=== PATIENT | female | born 1975 | race Caucasian/White ===

== ENCOUNTER 2016-09-13 12:52 | Emergency (ER) | payer OTHER ==
[~2016-09-13] VITALS: Ht 149.9 cm; Wt 74.8 kg
[2016-09-13 12:52] VITALS: BP 161/89
[2016-09-13] MEDS ORDERED: METF1000 PO (13:00)
[2016-09-13] MEDS ORDERED: SING10TA32 PO (13:16)
[2016-09-13] MEDS ORDERED: GUAISYP5 PO (13:16)
== END 2016-09-13 13:21 | disposition home or self-care (01) ==
LOC: M ED 13:12
DX: J06.9 Acute upper respiratory infection, unspecified (principal); E11.9 Type 2 diabetes mellitus without complications; Z79.84 Long term (current) use of oral hypoglycemic drugs; Z79.899 Other long term (current) drug therapy; Z88.0 Allergy status to penicillin

== ENCOUNTER 2016-11-09 08:54 | Emergency (ER) | payer OTHER ==
[~2016-11-09] VITALS: Ht 149.9 cm; Wt 72.2 kg
[~2016-11-09 08:54] MED LIST: GUAISYP5 PO; METF10004 PO; SING10TA32 PO
[2016-11-09 10:38] VITALS: BP 141/89
[2016-11-09] MEDS ORDERED: IBUP-1022 PO (10:38)
[2016-11-09] MEDS ORDERED: FLON1SPR (10:38)
== END 2016-11-09 10:44 | disposition home or self-care (01) ==
LOC: M ED 08:54
DX: H65.01 Acute serous otitis media, right ear (principal); E11.9 Type 2 diabetes mellitus without complications; Z79.84 Long term (current) use of oral hypoglycemic drugs; Z79.899 Other long term (current) drug therapy; Z88.0 Allergy status to penicillin

== ENCOUNTER → 2016-12-25 | Outpatient (CLI) | payer OTHER ==
[~2016-12-25] MED LIST changes: +FLON1SPR; +IBUP-1022 PO
--- NOTE | 2016-12-25 10:02 | REPMRS ---
Patient History The patient states she had a clinical breast exam in November 2016. Patient is nulliparous. No known family history of cancer. Taking hormonal contraceptives for 12 years. Digital Mammo Screening Bilat: December 25, 2016 - Exam #: [id number] Bilateral CC and MLO view(s) were taken. Technologist: Falguni Pastor, Technologist Prior study comparison: May 30, 2015, bilateral digital mammo screening bilat performed at [facility]. FINDINGS: There are scattered fibroglandular densities. There has been no change in the appearance of the mammogram from the prior studies. There is a mild amount of scattered fibroglandular density which is fairly symmetric. There is no interval development of dominant mass, architectural distortion, or clustered microcalcification suggestive of malignancy. ASSESSMENT: BI-RADS/ACR category 1 mammogram. Negative. Recommendation Routine screening mammogram in 1 year (for women over age 40). This mammogram was interpreted with the aid of an FDA-approved computer-aided dectection system. Electronically Signed By: Leonard Michele MD 12/25/16 0003
== END ==
LOC: M RAD 09:26
PROVIDERS: ATTEND Registered Nurse
DX: Z12.31 Encounter for screening mammogram for malignant neoplasm of breast (principal)

== ENCOUNTER 2017-05-20 14:09 | Emergency (ER) | payer OTHER, SELFPAY ==
[2017-05-20 17:24] LABS: INFLUENZA A AMPLIFICATION NEGATIVE (NEGATIVE); INFLUENZA B AMPLIFICATION NEGATIVE (NEGATIVE)
== END 2017-05-20 18:07 | disposition home or self-care (01) ==
LOC: M ED 14:09
DX: J06.9 Acute upper respiratory infection, unspecified (principal); E11.9 Type 2 diabetes mellitus without complications; Z79.84 Long term (current) use of oral hypoglycemic drugs; Z79.899 Other long term (current) drug therapy; Z88.0 Allergy status to penicillin
CPT/HCPCS: 87502

== ENCOUNTER → 2017-06-17 | Outpatient (REF) | payer OTHER ==
[2017-06-17 12:46] LABS: BASO % 0.4 % (0.0-1.0); EOS # 0.2 10^3/uL (0.0-0.50); EOS % 2.6 % (0.0-3.0); HEMATOCRIT 41.7 % (36.0-47.0); HEMOGLOBIN 14.3 g/dl (12.0-16.0); IMMATURE GRANULOCYTE % 0.3 % (0-3.0); LYMPH # 2.2 10^3/uL (1.5-4.5); LYMPH % 30.4 % (24.0-44.0); MEAN CORPUSCULAR HEMOGLOBIN 28.8 pg (27.0-33.0); MEAN CORPUSCULAR HGB CONC 34.3 g/dl (32.0-36.5); MEAN CORPUSCULAR VOLUME 83.9 fl (80.0-96.0); MONO # 0.5 10^3/uL (0.0-0.8); MONO % 6.7 % (0.0-5.0); NEUTROPHILS # 4.3 10^3/uL (1.8-7.7); NEUTROPHILS % 59.6 % (36.0-66.0); PLATELET COUNT, AUTOMATED 619 10^3/uL (150-450); RED BLOOD COUNT 4.97 10^6/uL (4.00-5.40); WHITE BLOOD COUNT 7.3 10^3/uL (4.0-10.0)
== END ==
LOC: M LAB REF 12:19
DX: R53.83 Other fatigue (principal)

== ENCOUNTER 2017-12-21 11:00 | Emergency (ER) | payer OTHER | END 2017-12-21 11:37 | disposition home or self-care (01) | LOC: M ED 11:00 | DX: H65.01 Acute serous otitis media, right ear (principal); J30.2 Other seasonal allergic rhinitis; R09.82 Postnasal drip; I10 Essential (primary) hypertension; Z79.899 Other long term (current) drug therapy; Z88.0 Allergy status to penicillin | CPT/HCPCS: 99282 ==

== ENCOUNTER 2018-01-25 22:01 | Emergency (ER) | payer OTHER ==
[2018-01-25] MEDS: ONDANSETRON 4MG/2ML VIAL (J2405) IV (23:02)
[2018-01-25] MEDS: MORPHINE 2 MG/ML 1ML SYRINGE (J2270) IV (23:06)
[2018-01-25 23:22] LABS: BASO # 0.1 10^3/uL (0.0-0.2); BASO % 0.6 % (0.0-1.0); EOS # 0.2 10^3/uL (0.0-0.50); EOS % 2.2 % (0.0-3.0); HEMATOCRIT 39.3 % (36.0-47.0); HEMOGLOBIN 13.7 g/dl (12.0-15.5); IMMATURE GRANULOCYTE % 0.4 % (0-3.0); LYMPH # 2.6 10^3/uL (1.5-4.5); LYMPH % 23.6 % (24.0-44.0); MEAN CORPUSCULAR HEMOGLOBIN 29.6 pg (27.0-33.0); MEAN CORPUSCULAR HGB CONC 34.9 g/dl (32.0-36.5); MEAN CORPUSCULAR VOLUME 84.9 fl (80.0-96.0); MONO # 0.5 10^3/uL (0.0-0.8); NEUTROPHILS # 7.4 10^3/uL (1.8-7.7); NEUTROPHILS % 68.2 % (36.0-66.0); PLATELET COUNT, AUTOMATED 389 10^3/uL (150-450); RED BLOOD COUNT 4.63 10^6/uL (4.00-5.40); RED CELL DISTRIBUTION WIDTH 11.9 % (11.5-14.5); WHITE BLOOD COUNT 10.9 10^3/uL (4.0-10.0)
[2018-01-25 23:42] LABS: CONTROL LINE HCG INT CTR LINE PRESENT; HCG, SERUM QUALITATIVE NEGATIVE (NEGATIVE)
[2018-01-25 23:52] LABS: ESTIMATED AVERAGE GLUCOSE 306 MG/DL (60-110); HEMOGLOBIN A1c 12.3 %
[2018-01-26 00:04] LABS: ALBUMIN 3.5 GM/DL (3.2-5.2); ALBUMIN/GLOBULIN RATIO 1.06 (1.00-1.93); ALKALINE PHOSPHATASE 153 U/L (45-117); ALT/SGPT 24 U/L (12-78); ANION GAP 7 MEQ/L (8-16); AST/SGOT 10 U/L (7-37); BILIRUBIN,DIRECT 0.1 MG/DL (0.0-0.2); BILIRUBIN,TOTAL 0.4 MG/DL (0.2-1.0); BLOOD UREA NITROGEN 11 MG/DL (7-18); CALCIUM LEVEL 8.3 MG/DL (8.5-10.1); CARBON DIOXIDE LEVEL 26 MEQ/L (21-32); CHLORIDE LEVEL 103 MEQ/L (98-107); CREATININE FOR GFR 0.63 MG/DL (0.55-1.30); GLOMERULAR FILTRATION RATE > 60.0 (>58); GLUCOSE, FASTING 481 MG/DL (70-100); POTASSIUM SERUM 3.8 MEQ/L (3.5-5.1); SODIUM LEVEL 136 MEQ/L (136-145); TOTAL PROTEIN 6.8 GM/DL (6.4-8.2)
[2018-01-26] MEDS: BACTRIM 160MG/800MG DS TAB PO (00:47)
[2018-01-26] MEDS: metFORMIN (GLUCOPHAGE) 500 MG TAB PO (00:47)
[2018-01-26] MEDS: NORCO 5/325MG TABLET (BULK FOR ED) PO (00:48)
[2018-01-26 01:59] LABS: FREE T4 1.16 NG/DL (0.76-1.46)
== END 2018-01-26 00:52 | disposition home or self-care (01) ==
LOC: M ED 01-26 00:52
DX: E11.9 Type 2 diabetes mellitus without complications (principal); I10 Essential (primary) hypertension; L03.811 Cellulitis of head [any part, except face]; Z88.0 Allergy status to penicillin
CPT/HCPCS: J2405

== ENCOUNTER → 2018-03-10 | Outpatient (REF) | payer OTHER ==
[2018-03-10 13:41] LABS: MALB URINE SIEMENS 55.1 MG/L; MAU/CREAT RATIO 39.9 MCG/MG (0.0-30.0)
== END ==
LOC: M LAB REF 12:12
DX: E11.9 Type 2 diabetes mellitus without complications (principal); I10 Essential (primary) hypertension
CPT/HCPCS: 82043

== ENCOUNTER → 2018-03-10 | Outpatient (REF) | payer OTHER ==
[2018-03-10 13:12] LABS: ALBUMIN 3.6 GM/DL (3.2-5.2); ALBUMIN/GLOBULIN RATIO 1.09 (1.00-1.93); ALKALINE PHOSPHATASE 98 U/L (45-117); ALT/SGPT 28 U/L (12-78); ANION GAP 9 MEQ/L (8-16); AST/SGOT 13 U/L (7-37); BILIRUBIN,TOTAL 0.6 MG/DL (0.2-1.0); BLOOD UREA NITROGEN 11 MG/DL (7-18); CALCIUM LEVEL 8.5 MG/DL (8.5-10.1); CARBON DIOXIDE LEVEL 25 MEQ/L (21-32); CHLORIDE LEVEL 104 MEQ/L (98-107); CHOLESTEROL LEVEL 198 MG/DL (<200); GLOMERULAR FILTRATION RATE > 60.0 (>58); GLUCOSE, FASTING 233 MG/DL (70-100); HDL CHOLESTEROL 44 MG/DL (>40); LDL CHOLESTEROL 133 MG/DL (<100); NON-HDL-C 154 MG/DL; POTASSIUM SERUM 4.2 MEQ/L (3.5-5.1); SODIUM LEVEL 138 MEQ/L (136-145); TOTAL PROTEIN 6.9 GM/DL (6.4-8.2); TRIGLYCERIDES LEVEL 105 MG/DL (<150)
[2018-03-10 13:44] LABS: ESTIMATED AVERAGE GLUCOSE 246 MG/DL (60-110); HEMOGLOBIN A1c 10.2 %
== END ==
LOC: M LAB REF 12:08
DX: E11.9 Type 2 diabetes mellitus without complications (principal); I10 Essential (primary) hypertension
CPT/HCPCS: 84443

== ENCOUNTER 2018-04-21 19:26 | Emergency (ER) | payer OTHER ==
[~2018-04-21] VITALS: Ht 149.9 cm; Wt 76.9 kg
[~2018-04-21 19:26] MED LIST changes: +FLON1SPR NARES; +LISI10TA4; +METF500T13 PO; +NORC1TAB4 PO; +TESS100C PO; +ZYRT10CA PO
[2018-04-21 20:13] LABS: HEMATOCRIT 42.8 % (36.0-47.0); HEMOGLOBIN 14.9 g/dl (12.0-15.5); MEAN CORPUSCULAR HEMOGLOBIN 29.7 pg (27.0-33.0); MEAN CORPUSCULAR HGB CONC 34.8 g/dl (32.0-36.5); MEAN CORPUSCULAR VOLUME 85.3 fl (80.0-96.0); PLATELET COUNT, AUTOMATED 493 10^3/uL (150-450); RED BLOOD COUNT 5.02 10^6/uL (4.00-5.40); WHITE BLOOD COUNT 10.5 10^3/uL (4.0-10.0)
[2018-04-21 20:43] LABS: HEMOGLOBIN A1c 10.6 %
[2018-04-21 20:48] LABS: ALBUMIN 3.9 GM/DL (3.2-5.2); ALT/SGPT 23 U/L (12-78); BILIRUBIN,DIRECT < 0.1 MG/DL (0.0-0.2); BILIRUBIN,TOTAL 0.3 MG/DL (0.2-1.0); BLOOD UREA NITROGEN 16 MG/DL (7-18); CALCIUM LEVEL 9.5 MG/DL (8.5-10.1); CARBON DIOXIDE LEVEL 26 MEQ/L (21-32); CHLORIDE LEVEL 97 MEQ/L (98-107); CREATININE FOR GFR 0.68 MG/DL (0.55-1.30); GLOMERULAR FILTRATION RATE > 60.0 (>58); GLUCOSE, FASTING 326 MG/DL (70-100); INFLUENZA A AMPLIFICATION NEGATIVE (NEGATIVE); INFLUENZA B AMPLIFICATION NEGATIVE (NEGATIVE); SODIUM LEVEL 133 MEQ/L (136-145); TOTAL PROTEIN 7.7 GM/DL (6.4-8.2)
[2018-04-21 21:08] VITALS: BP 138/83
[2018-04-21] MEDS ORDERED: GLYB125TA PO (21:17)
== END 2018-04-21 21:26 | disposition home or self-care (01) ==
LOC: M ED 19:26
DX: E11.65 Type 2 diabetes mellitus with hyperglycemia (principal); J02.9 Acute pharyngitis, unspecified; I10 Essential (primary) hypertension; Z88.0 Allergy status to penicillin; Z79.899 Other long term (current) drug therapy; Z79.84 Long term (current) use of oral hypoglycemic drugs

== ENCOUNTER → 2018-06-30 | Outpatient (REF) | payer OTHER ==
[~2018-06-30] MED LIST changes: +GLYB125TA PO
[2018-06-30 14:23] LABS: ALBUMIN 3.5 GM/DL (3.2-5.2); ALT/SGPT 18 U/L (12-78); BILIRUBIN,TOTAL 0.5 MG/DL (0.2-1.0); BLOOD UREA NITROGEN 14 MG/DL (7-18); CALCIUM LEVEL 8.6 MG/DL (8.5-10.1); CARBON DIOXIDE LEVEL 25 MEQ/L (21-32); CHLORIDE LEVEL 102 MEQ/L (98-107); CHOLESTEROL LEVEL 163 MG/DL (<200); CHOLESTEROL RISK RATIO 4.075 (<5); CREATININE FOR GFR 0.61 MG/DL (0.55-1.30); GLOMERULAR FILTRATION RATE > 60.0 (>58); GLUCOSE, FASTING 266 MG/DL (70-100); HDL CHOLESTEROL 40 MG/DL (>40); LDL CHOLESTEROL 103 MG/DL (<100); NON-HDL-C 123 MG/DL; POTASSIUM SERUM 4.3 MEQ/L (3.5-5.1); SODIUM LEVEL 136 MEQ/L (136-145); TOTAL PROTEIN 6.5 GM/DL (6.4-8.2); TRIGLYCERIDES LEVEL 102 MG/DL (<150)
[2018-06-30 15:17] LABS: HEMOGLOBIN A1c 9.2 %
== END ==
LOC: M LAB REF 12:51
PROVIDERS: ATTEND Family Medicine Addiction Medicine
DX: E11.9 Type 2 diabetes mellitus without complications (principal)

== ENCOUNTER → 2018-10-12 | Outpatient (REF) | payer OTHER ==
[~2018-10-12] MED LIST changes: +3 DA2CRE PV; +DIFL150T PO; -NORC1TAB4 PO; +NORC1TAB7 PO
[2018-10-12 14:56] LABS: CHLAMYDIA DNA AMPLIFICATION NEGATIVE (NEGATIVE); GC DNA AMPLIFICATION NEGATIVE (NEGATIVE)
[2018-10-19 00:08] LABS: HPV HYBRID CAPTURE II Negative (Negative)
== END ==
LOC: M LAB REF 12:54
PROVIDERS: ATTEND Nurse Practitioner Family
DX: Z13.9 Encounter for screening, unspecified (principal)
CPT/HCPCS: 87491; 87591; 87624; G0123

== ENCOUNTER → 2018-10-12 | Outpatient (REF) | payer OTHER ==
[2018-10-12 14:47] LABS: ALBUMIN 3.5 GM/DL (3.2-5.2); ALT/SGPT 27 U/L (12-78); BILIRUBIN,TOTAL 0.4 MG/DL (0.2-1.0); BLOOD UREA NITROGEN 12 MG/DL (7-18); CARBON DIOXIDE LEVEL 27 MEQ/L (21-32); CHLORIDE LEVEL 102 MEQ/L (98-107); CHOLESTEROL LEVEL 162 MG/DL (<200); GLOMERULAR FILTRATION RATE > 60.0 (>58); GLUCOSE, FASTING 276 MG/DL (70-100); HDL CHOLESTEROL 45 MG/DL (>40); LDL CHOLESTEROL 96 MG/DL (<100); NON-HDL-C 117 MG/DL; POTASSIUM SERUM 4.2 MEQ/L (3.5-5.1); SODIUM LEVEL 136 MEQ/L (136-145); TOTAL PROTEIN 6.8 GM/DL (6.4-8.2); TRIGLYCERIDES LEVEL 104 MG/DL (<150)
[2018-10-12 15:11] LABS: HEMOGLOBIN A1c 10.7 %
== END ==
LOC: M LAB REF 12:52
PROVIDERS: ATTEND Family Medicine Addiction Medicine
DX: E11.9 Type 2 diabetes mellitus without complications (principal)

== ENCOUNTER 2018-10-14 21:28 | Emergency (ER) | payer OTHER ==
[~2018-10-14] VITALS: Ht 152.4 cm; Wt 81.9 kg
[~2018-10-14 21:28] MED LIST changes: -3 DA2CRE PV; -DIFL150T PO
[2018-10-15] MEDS ORDERED: 3 DA2CRE PV (01:23)
[2018-10-15] MEDS ORDERED: DIFL150T PO (01:23)
[2018-10-15 01:27] VITALS: BP 129/66
[2018-10-15] MEDS ORDERED: FLUCONAZOLE 50MG TABLET PO ONE (01:30)
== END 2018-10-15 01:45 | disposition home or self-care (01) ==
LOC: M ED 21:28
DX: B37.3 Candidiasis of vulva and vagina (principal); E11.9 Type 2 diabetes mellitus without complications; I10 Essential (primary) hypertension; Z88.0 Allergy status to penicillin; Z79.899 Other long term (current) drug therapy

== ENCOUNTER → 2018-11-29 | Outpatient (CLI) | payer OTHER ==
[~2018-11-29] MED LIST changes: +3 DA2CRE PV; +DIFL150T PO
[2018-11-29 08:52] LABS: FREE T4 1.2 NG/DL (0.76-1.46); THYROID STIMULATING HORMONE 2.47 uIU/ML (0.358-3.740)
[2018-11-30 14:24] LABS: THYROID PEROXIDASE ANTIBODY 34.9 U/ML (<60.0)
== END ==
LOC: M LAB 07:53
PROVIDERS: ATTEND Internal Medicine Endocrinology, Diabetes & Metabolism
DX: E11.65 Type 2 diabetes mellitus with hyperglycemia (principal); R94.6 Abnormal results of thyroid function studies

== ENCOUNTER → 2018-12-21 | Outpatient (CLI) | payer OTHER ==
[2018-12-21 07:55] LABS: BLOOD UREA NITROGEN 14 MG/DL (7-18); CALCIUM LEVEL 9.1 MG/DL (8.5-10.1); CARBON DIOXIDE LEVEL 26 MEQ/L (21-32); CHLORIDE LEVEL 105 MEQ/L (98-107); CREATININE FOR GFR 0.59 MG/DL (0.55-1.30); GLOMERULAR FILTRATION RATE > 60.0 (>58); GLUCOSE, FASTING 225 MG/DL (70-100); POTASSIUM SERUM 4.4 MEQ/L (3.5-5.1); SODIUM LEVEL 137 MEQ/L (136-145)
== END ==
LOC: M LAB 06:53
PROVIDERS: ATTEND Nurse Practitioner Family
DX: E11.65 Type 2 diabetes mellitus with hyperglycemia (principal)

== ENCOUNTER → 2019-06-14 | Outpatient (REF) | payer OTHER, SELFPAY ==
[2019-06-14 14:05] LABS: BASO # 0.1 10^3/uL (0.0-0.2); BASO % 0.5 % (0.0-1.0); EOS # 0.2 10^3/uL (0.0-0.5); EOS % 1.9 % (0.0-3.0); HEMATOCRIT 43.3 % (36.0-47.0); LYMPH # 1.5 10^3/uL (1.5-5.0); LYMPH % 13.6 % (24.0-44.0); MEAN CORPUSCULAR HEMOGLOBIN 29.6 pg (27.0-33.0); MEAN CORPUSCULAR HGB CONC 34.6 g/dl (32.0-36.5); MEAN CORPUSCULAR VOLUME 85.4 fl (80.0-96.0); MONO # 0.6 10^3/uL (0.0-0.8); NEUTROPHILS # 8.8 10^3/uL (1.5-8.5); NEUTROPHILS % 78.6 % (36.0-66.0); PLATELET COUNT, AUTOMATED 369 10^3/uL (150-450); RED BLOOD COUNT 5.07 10^6/uL (4.00-5.40); WHITE BLOOD COUNT 11.2 10^3/uL (4.0-10.0)
[2019-06-14 14:20] LABS: ALBUMIN 3.9 GM/DL (3.2-5.2); ALT/SGPT 20 U/L (12-78); BILIRUBIN,TOTAL 0.6 MG/DL (0.2-1.0); BLOOD UREA NITROGEN 11 MG/DL (7-18); CALCIUM LEVEL 8.7 MG/DL (8.5-10.1); CARBON DIOXIDE LEVEL 27 MEQ/L (21-32); CHLORIDE LEVEL 103 MEQ/L (98-107); CHOLESTEROL LEVEL 199 MG/DL (<200); CHOLESTEROL RISK RATIO 4.422 (<5); CREATININE FOR GFR 0.59 MG/DL (0.55-1.30); FREE T4 1.16 NG/DL (0.76-1.46); GLOMERULAR FILTRATION RATE > 60.0 (>58); GLUCOSE, FASTING 281 MG/DL (70-100); HDL CHOLESTEROL 45 MG/DL (>40); LDL CHOLESTEROL 134 MG/DL (<100); NON-HDL-C 154 MG/DL; POTASSIUM SERUM 4.1 MEQ/L (3.5-5.1); SODIUM LEVEL 136 MEQ/L (136-145); TOTAL 25(OH) VITAMIN D 20.9 NG/ML (30.0-100.0); TOTAL PROTEIN 7.3 GM/DL (6.4-8.2); TRIGLYCERIDES LEVEL 100 MG/DL (<150)
[2019-06-14 14:24] LABS: HEMOGLOBIN A1c 11.4 %
== END ==
LOC: M LAB REF 12:59
PROVIDERS: ATTEND Nurse Practitioner Family
DX: Z00.01 Encounter for general adult medical examination with abnormal findings (principal); Z13.9 Encounter for screening, unspecified; E03.9 Hypothyroidism, unspecified; R53.83 Other fatigue; F41.9 Anxiety disorder, unspecified; E11.9 Type 2 diabetes mellitus without complications; I10 Essential (primary) hypertension

== ENCOUNTER 2019-09-10 21:14 | Emergency (ER) | payer OTHER ==
[~2019-09-10] VITALS: Ht 149.9 cm; Wt 80.2 kg
[2019-09-10] MEDS ORDERED: METF10004 PO (21:20)
[2019-09-10] MEDS ORDERED: ACETAMINOPHEN 500 MG TAB PO ONE (21:45)
[2019-09-10] MEDS ORDERED: IBUPROFEN 800 MG TAB PO ONE (21:45)
[2019-09-10] MEDS ORDERED: hydroCHLOROthiazide 12.5 MG CAPSULE PO ONE (22:00)
[2019-09-10] MEDS ORDERED: ALL10TAB29 (22:00)
[2019-09-10] MEDS ORDERED: GLIM2TAB29 (22:00)
[2019-09-10] MEDS ORDERED: LISI10TA15 (22:00)
[2019-09-10] MEDS ORDERED: SERT50TA29 (22:00)
[2019-09-10] MEDS ORDERED: METF500T13 (22:00)
[2019-09-10] MEDS ORDERED: lisinopriL 10 MG TAB PO ONE (22:00)
[2019-09-10] MEDS ORDERED: JENC0.35 (22:00)
[2019-09-10 22:22] LABS: BASO # 0.1 10^3/uL (0.0-0.2); BASO % 0.7 % (0.0-1.0); EOS # 0.2 10^3/uL (0.0-0.5); EOS % 2.9 % (0.0-3.0); HEMATOCRIT 42.6 % (36.0-47.0); HEMOGLOBIN 14.5 g/dl (12.0-15.5); LYMPH # 2.8 10^3/uL (1.5-5.0); LYMPH % 33.2 % (24.0-44.0); MEAN CORPUSCULAR HEMOGLOBIN 29.1 pg (27.0-33.0); MEAN CORPUSCULAR VOLUME 85.5 fl (80.0-96.0); MONO # 0.5 10^3/uL (0.0-0.8); MONO % 6.3 % (0.0-5.0); NEUTROPHILS # 4.8 10^3/uL (1.5-8.5); NEUTROPHILS % 56.8 % (36.0-66.0); PLATELET COUNT, AUTOMATED 437 10^3/uL (150-450); RED BLOOD COUNT 4.98 10^6/uL (4.00-5.40); WHITE BLOOD COUNT 8.4 10^3/uL (4.0-10.0)
[2019-09-10 22:40] LABS: ERYTHROCYTE SEDIMENTATION RATE 4 mm/hr (0-20)
[2019-09-10 22:45] LABS: BLOOD UREA NITROGEN 13 MG/DL (7-18); C REACTIVE PROTEIN QUANTITATIV < 0.30 MG/DL (0.00-0.30); CALCIUM LEVEL 8.2 MG/DL (8.5-10.1); CARBON DIOXIDE LEVEL 26 MEQ/L (21-32); CHLORIDE LEVEL 105 MEQ/L (98-107); GLOMERULAR FILTRATION RATE > 60.0 (>58); GLUCOSE, FASTING 338 MG/DL (70-100); POTASSIUM SERUM 3.8 MEQ/L (3.5-5.1); SODIUM LEVEL 135 MEQ/L (136-145)
[2019-09-10 23:02] VITALS: BP 154/82
[2019-09-10] MEDS ORDERED: KEFL500C17 PO (23:30)
== END 2019-09-10 23:48 | disposition home or self-care (01) ==
LOC: M ED 21:14
DX: L73.9 Follicular disorder, unspecified (principal); E11.65 Type 2 diabetes mellitus with hyperglycemia; R51 Headache; I10 Essential (primary) hypertension; Z88.0 Allergy status to penicillin; Z79.899 Other long term (current) drug therapy; Z79.84 Long term (current) use of oral hypoglycemic drugs

== ENCOUNTER → 2019-10-11 | Outpatient (REF) | payer OTHER ==
[~2019-10-11] MED LIST changes: +ALL10TAB29; +GLIM2TAB29; +JENC0.35; +KEFL500C17 PO; +LISI10TA15; +METF500T13; +SERT50TA29
[2019-10-11 14:04] LABS: BASO # 0.1 10^3/uL (0.0-0.2); BASO % 0.8 % (0.0-1.0); EOS # 0.2 10^3/uL (0.0-0.5); HEMOGLOBIN 13.8 g/dl (12.0-15.5); LYMPH % 31.5 % (24.0-44.0); MEAN CORPUSCULAR HEMOGLOBIN 30.1 pg (27.0-33.0); MEAN CORPUSCULAR HGB CONC 34.5 g/dl (32.0-36.5); MEAN CORPUSCULAR VOLUME 87.1 fl (80.0-96.0); MONO # 0.3 10^3/uL (0.0-0.8); MONO % 5.3 % (0.0-5.0); NEUTROPHILS # 3.8 10^3/uL (1.5-8.5); NEUTROPHILS % 59.1 % (36.0-66.0); PLATELET COUNT, AUTOMATED 429 10^3/uL (150-450); RED BLOOD COUNT 4.59 10^6/uL (4.00-5.40); WHITE BLOOD COUNT 6.4 10^3/uL (4.0-10.0)
[2019-10-11 14:15] LABS: ALBUMIN 3.3 GM/DL (3.2-5.2); ALT/SGPT 21 U/L (12-78); BILIRUBIN,TOTAL 0.5 MG/DL (0.2-1.0); BLOOD UREA NITROGEN 12 MG/DL (7-18); CALCIUM LEVEL 8.6 MG/DL (8.5-10.1); CARBON DIOXIDE LEVEL 28 MEQ/L (21-32); CHLORIDE LEVEL 103 MEQ/L (98-107); CHOLESTEROL LEVEL 199 MG/DL (<200); CHOLESTEROL RISK RATIO 4.975 (<5); CREATININE FOR GFR 0.64 MG/DL (0.55-1.30); GLOMERULAR FILTRATION RATE > 60.0 (>58); GLUCOSE, FASTING 206 MG/DL (70-100); HDL CHOLESTEROL 40 MG/DL (>40); LDL CHOLESTEROL 131 MG/DL (<100); NON-HDL-C 159 MG/DL; POTASSIUM SERUM 4.5 MEQ/L (3.5-5.1); SODIUM LEVEL 135 MEQ/L (136-145); TOTAL PROTEIN 6.3 GM/DL (6.4-8.2); TRIGLYCERIDES LEVEL 140 MG/DL (<150)
== END ==
LOC: M LAB REF 11:31
PROVIDERS: ATTEND Nurse Practitioner Family
DX: E78.5 Hyperlipidemia, unspecified (principal); Z13.9 Encounter for screening, unspecified; R53.83 Other fatigue; F41.9 Anxiety disorder, unspecified; E11.9 Type 2 diabetes mellitus without complications; I10 Essential (primary) hypertension

== ENCOUNTER → 2020-01-24 | Outpatient (REF) | payer OTHER ==
[~2020-01-24] MED LIST changes: -ALL10TAB29; +CETI-24
[2020-01-24 13:28] LABS: BASO # 0.1 10^3/uL (0.0-0.2); BASO % 0.9 % (0.0-1.0); EOS # 0.3 10^3/uL (0.0-0.5); EOS % 4.5 % (0.0-3.0); HEMATOCRIT 44.7 % (36.0-47.0); HEMOGLOBIN 15.2 g/dl (12.0-15.5); LYMPH # 2.7 10^3/uL (1.5-5.0); LYMPH % 39.7 % (24.0-44.0); MEAN CORPUSCULAR HEMOGLOBIN 29.5 pg (27.0-33.0); MEAN CORPUSCULAR VOLUME 86.6 fl (80.0-96.0); MONO # 0.5 10^3/uL (0.0-0.8); MONO % 6.7 % (0.0-5.0); NEUTROPHILS # 3.3 10^3/uL (1.5-8.5); NEUTROPHILS % 48.1 % (36.0-66.0); PLATELET COUNT, AUTOMATED 455 10^3/uL (150-450); RED BLOOD COUNT 5.16 10^6/uL (4.00-5.40); WHITE BLOOD COUNT 6.8 10^3/uL (4.0-10.0)
[2020-01-24 14:09] LABS: AMORPHOUS SEDIMENT SMALL (NEGATIVE); APPEARANCE, URINE TURBID (CLEAR); BACTERIA, URINE AUTO 1+ (NEGATIVE); BILIRUBIN, URINE AUTO NEGATIVE (NEGATIVE); BLOOD, URINE BLOOD 3+ (NEGATIVE); CALCIUM OXALATE CRYSTALS SMALL; COLOR, URINE AMBER (YELLOW); GLUCOSE, URINE (UA) AUTO 3+ mg/dL (NEGATIVE); KETONE, URINE AUTO NEGATIVE (NEGATIVE); LEUKOCYTE ESTERASE, URINE AUTO 2+ (NEGATIVE); MUCUS, URINE SMALL (NEGATIVE); NITRITE, URINE AUTO NEGATIVE (NEGATIVE); PROTEIN, URINE AUTO 1+ mg/dL (NEGATIVE); RBC, URINE AUTO 11 /HPF (0-3); SPECIFIC GRAVITY URINE AUTO 1.037 (1.002-1.035); SQUAMOUS EPITHELIAL CELL UR AU 17 /HPF (0-6); UROBILINOGEN, URINE AUTO 0.2 mg/dL (0.0-2.0); WBC, URINE AUTO 57 /HPF (0-3)
[2020-01-24 14:15] LABS: ALBUMIN 3.5 GM/DL (3.2-5.2); ALT/SGPT 26 U/L (12-78); BILIRUBIN,TOTAL 0.4 MG/DL (0.2-1.0); BLOOD UREA NITROGEN 12 MG/DL (7-18); CALCIUM LEVEL 9.2 MG/DL (8.5-10.1); CARBON DIOXIDE LEVEL 27 MEQ/L (21-32); CHLORIDE LEVEL 102 MEQ/L (98-107); CHOLESTEROL LEVEL 204 MG/DL (<200); CREATININE FOR GFR 0.62 MG/DL (0.55-1.30); GLOMERULAR FILTRATION RATE > 60.0 (>58); GLUCOSE, FASTING 231 MG/DL (70-100); HDL CHOLESTEROL 40 MG/DL (>40); LDL CHOLESTEROL 136 MG/DL (<100); NON-HDL-C 164 MG/DL; POTASSIUM SERUM 4.3 MEQ/L (3.5-5.1); SODIUM LEVEL 135 MEQ/L (136-145); TOTAL 25(OH) VITAMIN D 23.1 NG/ML (30.0-100.0); TOTAL PROTEIN 6.7 GM/DL (6.4-8.2); TRIGLYCERIDES LEVEL 141 MG/DL (<150)
[2020-01-24 15:16] LABS: HEMOGLOBIN A1c 11.3 %
== END ==
LOC: M LAB REF 12:25
PROVIDERS: ATTEND Nurse Practitioner Family
DX: Z00.01 Encounter for general adult medical examination with abnormal findings (principal); R51 Headache; F41.8 Other specified anxiety disorders; E78.5 Hyperlipidemia, unspecified; L20.9 Atopic dermatitis, unspecified; E03.9 Hypothyroidism, unspecified; Z13.9 Encounter for screening, unspecified; E11.9 Type 2 diabetes mellitus without complications; I10 Essential (primary) hypertension; J30.9 Allergic rhinitis, unspecified

== ENCOUNTER 2020-08-06 19:19 | Emergency (ER) | payer OTHER ==
[~2020-08-06] VITALS: Ht 149.9 cm; Wt 76.1 kg
[~2020-08-06 19:19] MED LIST changes: +LISI10TA22; -LISI10TA4
[2020-08-06] MEDS ORDERED: IBUPROFEN 600MG TAB PO ONE (20:25)
[2020-08-06] MEDS ORDERED: LIDOCAINE 4% CREAM 5GM (LMX4) TOP ONE (20:25)
--- NOTE | 2020-08-06 20:48 | REPVR ---
PROCEDURE INFORMATION: Exam: XR Left Wrist Exam date and time: 08/06/2020 7:58 PM Age: 45 years old Clinical indication: Pain; Wrist; Left TECHNIQUE: Imaging protocol: XR Left wrist. Views: 3 or more views. COMPARISON: CR Fingers 10/22/2014 1:33 PM FINDINGS: Bones/joints: Normal. Soft tissues: Normal. IMPRESSION: No acute findings. Electronically signed by: Lalito Hamilton On 08/06/2020 20:48:49 PM
[2020-08-06] MEDS ORDERED: IBUP-1022 PO (20:56)
[2020-08-06] MEDS ORDERED: ANEC4CRE3 TOP (20:56)
[2020-08-06 21:02] VITALS: BP 176/87
== END 2020-08-06 21:11 | disposition home or self-care (01) ==
LOC: M ED 19:19
DX: M25.532 Pain in left wrist (principal); M25.432 Effusion, left wrist; E11.9 Type 2 diabetes mellitus without complications; I10 Essential (primary) hypertension; Z79.84 Long term (current) use of oral hypoglycemic drugs; Z88.0 Allergy status to penicillin; Z88.1 Allergy status to other antibiotic agents

== ENCOUNTER → 2020-09-04 | Outpatient (REF) | payer OTHER ==
[~2020-09-04] MED LIST changes: +ANEC4CRE3 TOP
[2020-09-04 12:51] LABS: BASO # 0.1 10^3/uL (0.0-0.2); BASO % 0.5 % (0.0-1.0); EOS # 0.2 10^3/uL (0.0-0.5); EOS % 2.1 % (0.0-3.0); HEMOGLOBIN 14.2 g/dl (12.0-15.5); LYMPH # 2.1 10^3/uL (1.5-5.0); LYMPH % 20.3 % (24.0-44.0); MEAN CORPUSCULAR HEMOGLOBIN 29.3 pg (27.0-33.0); MEAN CORPUSCULAR HGB CONC 33.8 g/dl (32.0-36.5); MEAN CORPUSCULAR VOLUME 86.8 fl (80.0-96.0); MONO # 0.7 10^3/uL (0.0-0.8); MONO % 6.9 % (2.0-8.0); NEUTROPHILS # 7.1 10^3/uL (1.5-8.5); NEUTROPHILS % 69.7 % (36.0-66.0); PLATELET COUNT, AUTOMATED 412 10^3/uL (150-450); RED BLOOD COUNT 4.84 10^6/uL (4.00-5.40); WHITE BLOOD COUNT 10.1 10^3/uL (4.0-10.0)
[2020-09-04 13:09] LABS: HEMOGLOBIN A1c 11.3 %
[2020-09-04 13:37] LABS: ALBUMIN 3.5 GM/DL (3.2-5.2); ALT/SGPT 20 U/L (12-78); BILIRUBIN,TOTAL 0.6 MG/DL (0.2-1.0); BLOOD UREA NITROGEN 10 MG/DL (7-18); CALCIUM LEVEL 9.1 MG/DL (8.5-10.1); CARBON DIOXIDE LEVEL 26 MEQ/L (21-32); CHLORIDE LEVEL 103 MEQ/L (98-107); CHOLESTEROL LEVEL 174 MG/DL (<200); CHOLESTEROL RISK RATIO 3.551 (<5); CREATININE FOR GFR 0.51 MG/DL (0.55-1.30); FERRITIN 35 NG/ML (8-252); FOLATE 11.2 NG/ML; FREE T4 1.06 NG/DL (0.76-1.46); GLOMERULAR FILTRATION RATE > 60.0 (>58); GLUCOSE, FASTING 248 MG/DL (70-100); HDL CHOLESTEROL 49 MG/DL (>40); IRON (FE) 34 UG/DL (50-170); LDL CHOLESTEROL 110 MG/DL (<100); NON-HDL-C 125 MG/DL; PERCENT SATURATION 12.2 % (13.2-45.0); POTASSIUM SERUM 4.3 MEQ/L (3.5-5.1); SODIUM LEVEL 136 MEQ/L (136-145); TOTAL 25(OH) VITAMIN D 17.9 NG/ML (30.0-100.0); TOTAL IRON BINDING CAPACITY 279 UG/DL (250-450); TOTAL PROTEIN 6.6 GM/DL (6.4-8.2); TRIGLYCERIDES LEVEL 76 MG/DL (<150); VITAMIN B12 LEVEL 974 PG/ML
[2020-09-04 14:13] LABS: HEPATITIS C VIRUS ABY INDEX < 0.0 INDEX (<0.8)
[2020-09-04 14:14] LABS: HIV 1&2 SCREEN CENTAUR NEGATIVE (NEGATIVE)
== END ==
LOC: M LAB REF 12:23
PROVIDERS: ATTEND Nurse Practitioner Family
DX: F41.9 Anxiety disorder, unspecified (principal); E78.5 Hyperlipidemia, unspecified; I10 Essential (primary) hypertension

== ENCOUNTER 2020-09-20 07:30 | Outpatient (RCR) | payer OTHER | END 2020-09-23 | LOC: M PT 07:30 | PROVIDERS: ATTEND Orthopaedic Surgery Sports Medicine | DX: M70.12 Bursitis, left hand (principal) ==

== ENCOUNTER 2020-10-06 21:31 | Emergency (ER) | payer OTHER ==
[~2020-10-06] VITALS: Ht 149.9 cm; Wt 74.8 kg
[2020-10-07 00:45] VITALS: BP 162/78
[2020-10-07] MEDS ORDERED: OLOP0.1D OP (01:54)
== END 2020-10-07 02:05 | disposition home or self-care (01) ==
LOC: M ED 21:31
DX: H11.002 Unspecified pterygium of left eye (principal); E11.9 Type 2 diabetes mellitus without complications; I10 Essential (primary) hypertension; Z88.0 Allergy status to penicillin; Z88.1 Allergy status to other antibiotic agents

== ENCOUNTER → 2020-10-23 | Outpatient (RCR) | payer OTHER ==
[~2020-10-23] MED LIST changes: +OLOP0.1D OP
== END ==
LOC: M PT 10-02 10:17
PROVIDERS: ATTEND Orthopaedic Surgery Sports Medicine
DX: M70.12 Bursitis, left hand (principal)

== ENCOUNTER 2021-04-21 04:18 | Emergency (ER) | payer OTHER ==
[~2021-04-21] VITALS: Ht 149.9 cm; Wt 73.3 kg
[~2021-04-21 04:18] MED LIST changes: -LISI10TA15; +LISI10TA24
[2021-04-21] MEDS ORDERED: TESS100C PO (09:57)
[2021-04-21] MEDS ORDERED: LIDO2SO PO (09:57)
[2021-04-21] MEDS ORDERED: ERYT5OIN25 OS (09:57)
[2021-04-21 10:22] VITALS: BP 139/77
== END 2021-04-21 10:26 | disposition home or self-care (01) ==
LOC: M ED 04:18
DX: J06.9 Acute upper respiratory infection, unspecified (principal); J02.9 Acute pharyngitis, unspecified; H10.32 Unspecified acute conjunctivitis, left eye; E11.9 Type 2 diabetes mellitus without complications; I10 Essential (primary) hypertension; Z88.0 Allergy status to penicillin

== ENCOUNTER 2021-04-24 18:22 | Emergency (ER) | payer OTHER ==
[~2021-04-24] VITALS: Ht 149.9 cm; Wt 72.2 kg
[~2021-04-24 18:22] MED LIST changes: +ERYT5OIN25 OS; +LIDO2SO PO; +LISI10TA15; -LISI10TA24
[2021-04-24 23:22] VITALS: BP 190/92
== END 2021-04-24 23:38 | disposition home or self-care (01) ==
LOC: M ED 18:22
DX: J02.9 Acute pharyngitis, unspecified (principal); E11.9 Type 2 diabetes mellitus without complications; I10 Essential (primary) hypertension; Z88.0 Allergy status to penicillin

== ENCOUNTER 2021-06-04 04:25 | Emergency (ER) | payer OTHER ==
[~2021-06-04] VITALS: Ht 149.9 cm; Wt 70.6 kg
[~2021-06-04 04:25] MED LIST changes: -LISI10TA15; +LISI10TA24
[2021-06-04] MEDS ORDERED: TETRACAINE 0.5% OPHTH SOLN 4ML OU ONE (07:20)
[2021-06-04] MEDS ORDERED: FLUORESCEIN OPHTH 1 MG STRIP OU ONE (07:20)
[2021-06-04] MEDS ORDERED: METF10004 PO (07:35)
[2021-06-04 08:47] VITALS: BP 170/90
== END 2021-06-04 08:49 | disposition home or self-care (01) ==
LOC: M ED 04:25
DX: H53.8 Other visual disturbances (principal); E11.9 Type 2 diabetes mellitus without complications; I10 Essential (primary) hypertension; Z79.4 Long term (current) use of insulin; Z88.0 Allergy status to penicillin; Z88.1 Allergy status to other antibiotic agents

== ENCOUNTER 2022-03-16 14:30 | Emergency (ER) | payer OTHER ==
[~2022-03-16] VITALS: Ht 149.9 cm; Wt 75.0 kg
[~2022-03-16 14:30] MED LIST changes: -OLOP0.1D OP; +OLOP5DRO16 OP
[2022-03-16 15:37] LABS: BASO # 0.1 10^3/uL (0.0-0.2); BASO % 0.4 % (0.0-1.0); EOS # 0.2 10^3/uL (0.0-0.5); EOS % 1.5 % (0.0-3.0); HEMATOCRIT 43.5 % (36.0-47.0); LYMPH # 2.4 10^3/uL (1.5-5.0); LYMPH % 19.2 % (24.0-44.0); MEAN CORPUSCULAR HEMOGLOBIN 29.5 pg (27.0-33.0); MEAN CORPUSCULAR HGB CONC 34.5 g/dl (32.0-36.5); MEAN CORPUSCULAR VOLUME 85.6 fl (80.0-96.0); MONO # 0.8 10^3/uL (0.0-0.8); MONO % 6.7 % (2.0-8.0); NEUTROPHILS % 71.9 % (36.0-66.0); PLATELET COUNT, AUTOMATED 422 10^3/uL (150-450); RED BLOOD COUNT 5.08 10^6/uL (4.00-5.40); WHITE BLOOD COUNT 12.5 10^3/uL (4.0-10.0)
[2022-03-16 16:10] LABS: BLOOD UREA NITROGEN 12 MG/DL (9-23); CARBON DIOXIDE LEVEL 29 MMOL/L (20-31); CHLORIDE LEVEL 100 MMOL/L (98-107); CREATININE FOR GFR 0.54 MG/DL (0.55-1.30); GLOMERULAR FILTRATION RATE > 60.0 (>58); GLUCOSE, FASTING 143 MG/DL (60-100); POTASSIUM SERUM 4.3 MMOL/L (3.5-5.1); SODIUM LEVEL 139 MMOL/L (136-145)
[2022-03-16 16:54] LABS: HCG, SERUM QUALITATIVE NEGATIVE (NEGATIVE)
[2022-03-16] MEDS ORDERED: AUGMENTIN 875 MG TAB PO ONE (17:00)
[2022-03-16 17:05] VITALS: BP 154/82
[2022-03-16] MEDS ORDERED: AMOX875T2 PO (17:14)
== END 2022-03-16 17:21 | disposition home or self-care (01) ==
LOC: M ED 14:30
DX: K02.9 Dental caries, unspecified (principal); L03.211 Cellulitis of face; E11.9 Type 2 diabetes mellitus without complications; I10 Essential (primary) hypertension; Z88.0 Allergy status to penicillin; Z88.1 Allergy status to other antibiotic agents; Z79.84 Long term (current) use of oral hypoglycemic drugs

== ENCOUNTER → 2022-04-29 | Outpatient (REF) | payer OTHER ==
[~2022-04-29] MED LIST changes: +AMOX875T2 PO
== END ==
LOC: M LAB REF 16:32
PROVIDERS: ATTEND Nurse Practitioner Family
DX: R05.9 Cough, unspecified (principal)

== ENCOUNTER 2023-02-13 23:42 | Inpatient (IN) | payer OTHER ==
[~2023-02-13] VITALS: Ht 149.9 cm; Wt 77.5 kg
[~2023-02-13 23:42] MED LIST changes: +LIDO15SO2 PO; -LIDO2SO PO; +MONT-5 PO; -OLOP5DRO16 OP; +OLOP5DRO17 OP; -SING10TA32 PO
[2023-02-14] VITALS (8 sets, daily range): BP systolic 110–196; BP diastolic 55–100; TEMP 96.4–97.1; O2SAT 96–98
[2023-02-14] MEDS ORDERED: LABETALOL 100MG/20ML VIAL IV STA ×2 (00:47→02:00)
[2023-02-14] MEDS ORDERED: ERYTHROMYCIN OPHTH OINT OS ONE (00:50)
[2023-02-14 01:12] LABS: BASO # 0.1 10^3/uL (0.0-0.2); BASO % 0.7 % (0.0-1.0); EOS # 0.3 10^3/uL (0.0-0.5); EOS % 2.9 % (0.0-3.0); HEMOGLOBIN 16.1 g/dl (12.0-15.5); LYMPH # 3.1 10^3/uL (1.5-5.0); LYMPH % 30.8 % (24.0-44.0); MEAN CORPUSCULAR HEMOGLOBIN 29.8 pg (27.0-33.0); MEAN CORPUSCULAR HGB CONC 35.8 g/dl (32.0-36.5); MEAN CORPUSCULAR VOLUME 83.3 fl (80.0-96.0); MONO # 0.6 10^3/uL (0.0-0.8); MONO % 6.3 % (2.0-8.0); NEUTROPHILS # 5.9 10^3/uL (1.5-8.5); PLATELET COUNT, AUTOMATED 430 10^3/uL (150-450)
[2023-02-14 01:45] LABS: RSV AMPLIFICATION NEGATIVE (NEGATIVE)
[2023-02-14] MEDS ORDERED: LISI10TA24 PO (01:47)
[2023-02-14] MEDS ORDERED: MINO100C4 PO (01:47)
[2023-02-14] MEDS ORDERED: ATOR1TAB21 PO (01:47)
[2023-02-14] MEDS ORDERED: SERT50TA29 PO (01:47)
[2023-02-14] MEDS ORDERED: TRUL10IN SC (01:47)
[2023-02-14] MEDS ORDERED: GLIM2TAB29 PO ×2 (01:47→16:08)
[2023-02-14] MEDS ORDERED: ERYT2GEL TOP (01:47)
[2023-02-14] MEDS ORDERED: CETI-24 PO (01:47)
[2023-02-14] MEDS ORDERED: METO1TAB87 PO (01:47)
[2023-02-14] MEDS ORDERED: JARD1TAB PO (01:47)
[2023-02-14] MEDS ORDERED: VITA200032 PO (01:47)
[2023-02-14] MEDS ORDERED: FERR325T19 PO (01:47)
[2023-02-14] MEDS ORDERED: SUMA50TA2 PO (01:47)
[2023-02-14] MEDS ORDERED: NORA0.35 PO (01:48)
[2023-02-14] MEDS ORDERED: ACET-683 PO (01:51)
[2023-02-14] MEDS ORDERED: HOME MED LIST COMPLETE! XX SCH (01:55)
[2023-02-14] MEDS ORDERED: HumuLIN R (REGULAR) INSULIN (NovoLIN R) **100U/ML** PER UNIT IV ONE (02:00)
[2023-02-14] MEDS ORDERED: hydrALAZINE 20MG/ML 1ML VIAL IV PRN (04:40)
[2023-02-14] MEDS ORDERED: DEXTROSE 50% 50ML SYRINGE IV PRN (04:40)
[2023-02-14] MEDS ORDERED: GLUCAGON INJ 1MG VIAL SC PRN (04:40)
[2023-02-14] MEDS ORDERED: ACETAMINOPHEN TAB 650MG DOSE (2X325MG) PO PRN (04:40)
[2023-02-14] MEDS ORDERED: GLUCOSE 4GM CHEW TABLET PO PRN (04:40)
[2023-02-14] MEDS ORDERED: INSULIN LISPRO (NovoLOG) PER UNIT SC ONE (06:00)
[2023-02-14] MEDS ORDERED: SUMAtriptan SUCCINATE 25 MG TAB PO PRN (07:00)
[2023-02-14] MEDS ORDERED: metFORMIN (GLUCOPHAGE) 1000MG TABLET PO SCH (08:00)
[2023-02-14] MEDS ORDERED: LEVEMIR (INSULIN DETEMIR) 1 UNITS/0.01ML SC SCH (09:00)
[2023-02-14] MEDS ORDERED: FERROUS SULFATE 325MG TAB PO SCH (09:00)
[2023-02-14] MEDS ORDERED: METOPROLOL TART 25 MG TABLET PO SCH (09:00)
[2023-02-14] MEDS ORDERED: METOPROLOL SUCC (TopROL XL) 50MG **XL** TAB PO SCH (09:00)
[2023-02-14] MEDS ORDERED: ENTER DRUG NAME HERE (PATIENT'S OWN MED) PO SCH (09:00)
[2023-02-14] MEDS ORDERED: hydroCHLOROthiazide 12.5 MG CAPSULE PO SCH (09:00)
[2023-02-14] MEDS ORDERED: CETIRIZINE (ZyrTEC) 10 MG TAB PO SCH (09:00)
[2023-02-14] MEDS ORDERED: ENOXAPARIN 40MG/0.4ML SYRINGE (J1650 PER 10MG) SC SCH (09:00)
[2023-02-14] MEDS ORDERED: ERYTHROMYCIN OPHTH OINT OS SCH (09:00)
[2023-02-14] MEDS ORDERED: SERTRALINE HCL 50 MG TAB PO SCH (09:00)
[2023-02-14] MEDS ORDERED: GLIMEPIRIDE 2 MG TAB PO SCH (09:00)
[2023-02-14] MEDS ORDERED: ATORVASTATIN 20 MG TAB PO SCH (09:00)
[2023-02-14] MEDS: ERYTHROMYCIN OPHTH OINT OU SCH ×2 (09:33→15:53)
[2023-02-14] MEDS: INSULIN LISPRO (NovoLOG) PER UNIT SC SCH ×2 (09:35→12:20)
[2023-02-14] MEDS ORDERED: GLUC1TES2 XX (10:28)
[2023-02-14] MEDS ORDERED: ERYT5OIN25 OU (10:28)
[2023-02-14] MEDS ORDERED: LANC30MI XX (10:28)
[2023-02-14] MEDS ORDERED: PEN-308 SC (10:28)
[2023-02-14] MEDS ORDERED: ALCOPAD25 TOP (10:28)
[2023-02-14] MEDS ORDERED: INSU100I48 SQ (10:28)
[2023-02-14] MEDS ORDERED: BLOOKIT21 XX (10:28)
[2023-02-14] MEDS ORDERED: LEVEMIR (INSULIN DETEMIR) 1 UNITS/0.01ML SC ONE (11:20)
[2023-02-14] MEDS: MAG SULF 1GM/100ML (MAG RUN) 1 GM in IV 1 EA IV SCH ×2 (11:20→12:19)
[2023-02-14] MEDS ORDERED: BASA100I SC ×2 (13:09→15:12)
[2023-02-14] MEDS ORDERED: METO1TAB7 PO (15:56)
[2023-02-14] MEDS ORDERED: LISI20TA37 PO (15:56)
[2023-02-14] MEDS ORDERED: hydroCHLOROthiazide 12.5 MG CAPSULE PO ONE (16:00)
[2023-02-14] MEDS ORDERED: METF10004 PO (16:08)
[2023-02-14] MEDS ORDERED: INSULIN LISPRO (NovoLOG) PER UNIT SC SCH (21:00)
[2023-02-15] MEDS ORDERED: LEVEMIR (INSULIN DETEMIR) 1 UNITS/0.01ML SC SCH (09:00)
[2023-02-16 09:06] LABS: FREE T4 1.07 NG/DL (0.93-1.70); MAGNESIUM LEVEL 1.6 MG/DL (1.7-2.2)
[2023-02-16 09:07] LABS: BLOOD UREA NITROGEN 13 MG/DL (7-21); CALCIUM LEVEL 9.5 MG/DL (8.4-10.2); CARBON DIOXIDE LEVEL 23 MEQ/L (22-30); CHLORIDE LEVEL 97 MEQ/L (98-107); CREATININE FOR GFR 0.4 MG/DL (0.7-1.5); GLOMERULAR FILTRATION RATE > 60.0 (>58); GLUCOSE, FASTING 373 MG/DL (70-99); POTASSIUM SERUM 3.8 MEQ/L (3.6-5.0); SODIUM LEVEL 133 MEQ/L (134-153)
== END 2023-02-14 17:15 | disposition home or self-care (01) | DRG 199 ==
LOC: M ED 23:42 → M ED INP 02-14 03:56 → ENRESERV 02-14 04:13 → M PCU 02-14 04:35
PROVIDERS: ADMIT Family Medicine; ATTEND Internal Medicine
DX: I16.0 Hypertensive urgency (principal); E11.65 Type 2 diabetes mellitus with hyperglycemia; E83.42 Hypomagnesemia; E87.1 Hypo-osmolality and hyponatremia; F41.9 Anxiety disorder, unspecified; F32.A Depression, unspecified; G43.909 Migraine, unspecified, not intractable, without status migrainosus; H10.9 Unspecified conjunctivitis; Z91.128 Patient's intentional underdosing of medication regimen for other reason; Z79.899 Other long term (current) drug therapy; Z79.4 Long term (current) use of insulin; Z88.0 Allergy status to penicillin; Z83.3 Family history of diabetes mellitus; E78.5 Hyperlipidemia, unspecified; I10 Essential (primary) hypertension

== ENCOUNTER → 2023-04-07 | Outpatient (REF) | payer OTHER ==
[~2023-04-07] MED LIST changes: +ACET-683 PO; +ALCOPAD25 TOP; +ATOR1TAB21 PO; +BASA100I SC; +BLOOKIT21 XX; +CETI-24 PO; +ERYT2GEL TOP; +ERYT5OIN25 OU; +FERR325T19 PO; +GLIM2TAB29 PO; +GLUC1TES2 XX; +INSU100I48 SQ; +JARD1TAB PO; +LANC30MI XX; +LISI10TA24 PO; +LISI20TA37 PO; +METO1TAB7 PO; +METO1TAB87 PO; +MINO100C4 PO; +NORA0.35 PO; +PEN-308 SC; +SERT50TA29 PO; +SUMA50TA2 PO; +TRUL10IN SC; +VITA200032 PO
[2023-04-07 15:27] LABS: BASO # 0.1 10^3/uL (0.0-0.2); BASO % 0.6 % (0.0-1.0); EOS # 0.3 10^3/uL (0.0-0.5); EOS % 3.6 % (0.0-3.0); HEMATOCRIT 42.2 % (36.0-47.0); HEMOGLOBIN 14.1 g/dl (12.0-15.5); LYMPH # 2.7 10^3/uL (1.5-5.0); LYMPH % 29.4 % (24.0-44.0); MEAN CORPUSCULAR HEMOGLOBIN 29.5 pg (27.0-33.0); MEAN CORPUSCULAR HGB CONC 33.4 g/dl (32.0-36.5); MEAN CORPUSCULAR VOLUME 88.3 fl (80.0-96.0); MONO # 0.6 10^3/uL (0.0-0.8); MONO % 6.4 % (2.0-8.0); NEUTROPHILS # 5.4 10^3/uL (1.5-8.5); NEUTROPHILS % 59.8 % (36.0-66.0); PLATELET COUNT, AUTOMATED 487 10^3/uL (150-450); RED BLOOD COUNT 4.78 10^6/uL (4.00-5.40)
[2023-04-07 15:49] LABS: HEMOGLOBIN A1c 8.6 % (4.0-6.0)
[2023-04-07 16:00] LABS: ALBUMIN 3.7 G/DL (3.2-5.2); ALKALINE PHOSPHATASE 71 U/L (46-116); ALT/SGPT 12 U/L (7.0-40); AST/SGOT 11 U/L (<34); BILIRUBIN,TOTAL 0.4 MG/DL (0.3-1.2); BLOOD UREA NITROGEN 12 MG/DL (9-23); CARBON DIOXIDE LEVEL 27 MMOL/L (20-31); CHLORIDE LEVEL 103 MMOL/L (98-107); CHOLESTEROL LEVEL 107 MG/DL (<200); CHOLESTEROL RISK RATIO 2.87 (<5); CREATININE FOR GFR 0.64 MG/DL (0.55-1.30); GLOMERULAR FILTRATION RATE > 60.0 (>58); GLUCOSE, FASTING 134 MG/DL (60-100); HDL CHOLESTEROL 37.2 MG/DL (>40); LDL CHOLESTEROL 56.6 MG/DL (<100); NON-HDL-C 69.8 MG/DL; POTASSIUM SERUM 4.5 MMOL/L (3.5-5.1); SODIUM LEVEL 138 MMOL/L (136-145); TOTAL PROTEIN 6.5 G/DL (5.7-8.2); TRIGLYCERIDES LEVEL 66 MG/DL (<150)
[2023-04-07 16:01] LABS: TOTAL 25(OH) VITAMIN D 41.7 NG/ML (20.0-100.0)
== END ==
LOC: M LAB REF 13:39
PROVIDERS: ATTEND Nurse Practitioner Family
DX: E66.3 Overweight (principal); E55.9 Vitamin D deficiency, unspecified

== ENCOUNTER → 2023-04-14 | Outpatient (REF) | payer OTHER ==
[2023-04-14 19:22] LABS: CREATININE, URINE 44.7 MG/DL; CREATININE,RANDOM URINE 44.7 MG/DL; MAU/CREAT RATIO 228.1 MCG/MG (0.0-30.0)
== END ==
LOC: M LAB REF 18:18
PROVIDERS: ATTEND Nurse Practitioner Family
DX: E11.65 Type 2 diabetes mellitus with hyperglycemia (principal)

== ENCOUNTER 2023-07-04 09:09 | Emergency (ER) | payer OTHER, SELFPAY ==
[~2023-07-04] VITALS: Ht 149.9 cm; Wt 78.4 kg
[~2023-07-04 09:09] MED LIST changes: -LIDO15SO2 PO; +LIDO15SO9 PO
[2023-07-04] MEDS ORDERED: CLEO300C2 PO (09:44)
[2023-07-04] MEDS: CLINDAMYCIN 150MG CAPSULE PO ONE (09:56)
[2023-07-04 10:01] VITALS: BP 142/54; TEMP 97.6; O2SAT 98
== END 2023-07-04 10:03 | disposition home or self-care (01) ==
LOC: M ED 09:09
DX: K04.7 Periapical abscess without sinus (principal); K02.9 Dental caries, unspecified; F10.10 Alcohol abuse, uncomplicated; E11.9 Type 2 diabetes mellitus without complications; I10 Essential (primary) hypertension; F41.9 Anxiety disorder, unspecified; F32.A Depression, unspecified; Z88.0 Allergy status to penicillin; Z88.1 Allergy status to other antibiotic agents; Z79.4 Long term (current) use of insulin; Z79.811 Long term (current) use of aromatase inhibitors; Z79.02 Long term (current) use of antithrombotics/antiplatelets; Z79.899 Other long term (current) drug therapy

== ENCOUNTER 2024-08-30 11:03 | Emergency (ER) | payer OTHER, SELFPAY ==
[~2024-08-30] VITALS: Ht 149.9 cm; Wt 80.6 kg
[~2024-08-30 11:03] MED LIST changes: +CLEO300C2 PO
[2024-08-30] MEDS: METOPROLOL TART 25 MG TABLET PO ONE (11:52)
[2024-08-30 12:27] LABS: BLOOD UREA NITROGEN 9 MG/DL (9-23); CALCIUM LEVEL 9.1 MG/DL (8.5-10.1); CARBON DIOXIDE LEVEL 28 MMOL/L (20-31); CHLORIDE LEVEL 97 MMOL/L (98-107); CREATININE FOR GFR 0.44 MG/DL (0.55-1.30); GLOMERULAR FILTRATION RATE > 90.0 (>51); GLUCOSE, FASTING 353 MG/DL (60-100); POTASSIUM SERUM 4.1 MMOL/L (3.5-5.1); SODIUM LEVEL 136 MMOL/L (136-145)
[2024-08-30] MEDS ORDERED: HOME MED LIST COMPLETE! XX SCH (12:50)
[2024-08-30 13:33] VITALS: BP 185/85
[2024-08-30] MEDS ORDERED: METO1TAB87 PO (13:51)
[2024-08-30] MEDS ORDERED: LISI10TA22 PO (13:51)
[2024-08-30] MEDS ORDERED: METF-839 PO (13:51)
[2024-08-30 14:31] VITALS: BP 162/82; TEMP 97; O2SAT 98
== END 2024-08-30 14:32 | disposition home or self-care (01) ==
LOC: M ED 11:03
DX: I10 Essential (primary) hypertension (principal); E11.9 Type 2 diabetes mellitus without complications; Z91.148 Patient's other noncompliance with medication regimen for other reason; Z88.0 Allergy status to penicillin; Z88.1 Allergy status to other antibiotic agents; Z79.4 Long term (current) use of insulin; Z79.899 Other long term (current) drug therapy

== ENCOUNTER → 2024-10-26 | Outpatient (REF) | payer OTHER ==
[~2024-10-26] MED LIST changes: +LISI10TA22 PO; +METF-839 PO
[2024-10-26 14:17] LABS: CREATININE, URINE 87.0 MG/DL
[2024-10-26 14:30] LABS: MALB URINE SIEMENS 471.0 MG/L; MAU/CREAT RATIO 541.3 MCG/MG (0.0-30.0)
== END ==
LOC: M LAB REF 12:15
PROVIDERS: ATTEND Student in an Organized Health Care Education/Training Program
DX: R80.9 Proteinuria, unspecified (principal)

== ENCOUNTER → 2024-10-26 | Outpatient (REF) | payer OTHER ==
[2024-10-26 14:30] LABS: BASO # 0.0 10^3/uL (0.0-0.2); BASO % 0.6 % (0.0-1.0); EOS # 0.2 10^3/uL (0.0-0.5); EOS % 2.9 % (0.0-3.0); LYMPH # 2.2 10^3/uL (1.5-5.0); LYMPH % 31.6 % (24.0-44.0); MONO # 0.4 10^3/uL (0.0-0.8); MONO % 5.7 % (2.0-8.0); NEUTROPHILS # 4.1 10^3/uL (1.5-8.5); NEUTROPHILS % 58.8 % (36.0-66.0); PLATELET COUNT, AUTOMATED 449 10^3/uL (150-450)
[2024-10-26 14:33] LABS: IRON (FE) 100.0 UG/DL (50-170)
[2024-10-26 14:36] LABS: VITAMIN B12 LEVEL 446.0 PG/ML (211-911)
== END ==
LOC: M LAB REF 13:38
PROVIDERS: ATTEND Student in an Organized Health Care Education/Training Program
DX: R53.83 Other fatigue (principal)

== ENCOUNTER → 2025-02-19 | Outpatient (REF) | payer OTHER ==
[~2025-02-19] MED LIST changes: -IBUP-1022 PO; +IBUP600T42 PO
[2025-02-19 18:45] LABS: MALB URINE SIEMENS 97.0 MG/L
[2025-02-19 18:47] LABS: CREATININE, URINE 39.8 MG/DL; MAU/CREAT RATIO 243.7 MCG/MG (0.0-30.0)
== END ==
LOC: M LAB REF 16:16
PROVIDERS: ATTEND Student in an Organized Health Care Education/Training Program
DX: R80.9 Proteinuria, unspecified (principal)

== ENCOUNTER → 2025-02-25 | Outpatient (CLI) | payer OTHER | LOC: M EKG 09:43 | PROVIDERS: ATTEND Student in an Organized Health Care Education/Training Program | DX: R42 Dizziness and giddiness (principal) ==